=== PATIENT | male | born 1950 | race Caucasian/White ===

== ENCOUNTER 2023-06-17 12:43 | Outpatient (CLI) | payer OTHER, MEDICARE | END 2023-06-17 21:28 | disposition home or self-care (01) | LOC: SUS 12:43 | PROVIDERS: ATTEND Internal Medicine | DX: N28.1 Cyst of kidney, acquired (principal); N13.30 Unspecified hydronephrosis | CPT/HCPCS: 76770 ==

== ENCOUNTER 2023-09-20 13:15 | Inpatient (IN) | payer OTHER, MEDICARE ==
[~2023-09-20] VITALS: Ht 190.5 cm; Wt 110.7 kg
[2023-09-20 13:18] VITALS: BP_SYST 116; PULSE 74; RESP 18; TEMP 97.8; O2SAT 97
[2023-09-20] MEDS ORDERED: PANTOPRAZOLE SODIUM 40 MG/VIAL (PROTONIX) IVP ONE (14:00)
[2023-09-20 14:09] LABS: BASOPHILS # (AUTO) 0.1 K/uL (0.0-0.2); BASOPHILS % (AUTO) 1.4 % (0.0-2.0); EOSINOPHILS # (AUTO) 0.2 K/uL (0.0-0.4); EOSINOPHILS % (AUTO) 2.5 % (0.0-4.0); HEMOGLOBIN 7.1 g/dL (14.0-18.0); LYMPHOCYTES # (AUTO) 2.6 K/uL (1.0-5.5); LYMPHOCYTES % (AUTO) 29.6 % (20.5-51.5); MEAN CORPUSCULAR HEMOGLOBIN 28 pg (27-31); MEAN CORPUSCULAR HGB CONC 32 % (32-36); MEAN CORPUSCULAR VOLUME 88 fL (79.0-98.0); MONOCYTES # (AUTO) 0.8 K/uL (0.0-1.0); MONOCYTES % (AUTO) 8.8 % (1.7-9.3); NEUTROPHILS % (AUTO) 57.7 % (40.0-70.0); PLATELET COUNT (AUTO) 274 K/uL (130-430); RED BLOOD CELL COUNT(AUTO) 2.49 MIL/uL (4.2-6.2); RED CELL DISTRIBUTION WIDTH 18.7 % (9.0-15.0); WHITE BLOOD COUNT (AUTO) 8.7 K/uL (4.8-10.8)
[2023-09-20 14:19] LABS: ANION GAP 10 (5-15); CALCIUM 9.4 mg/dL (8.4-11.0); CARBON DIOXIDE 26 mmol/L (23-29); CHLORIDE 99 mmol/L (98-107); CREATININE 1.44 mg/dL (0.55-1.30); GLUCOSE 65 mg/dL (74-106); POTASSIUM 3.9 mmol/L (3.5-5.1); SODIUM SERUM 135 mmol/L (136-145); UREA NITROGEN, BLOOD 11 mg/dL (8-21)
[2023-09-20 14:24] LABS: ALANINE AMINOTRANSFERASE 46 U/L (12-78); ALBUMIN 3.6 g/dL (3.4-4.8); ASPARTATE AMINOTRANSFERASE 29 U/L (10-37); BILIRUBIN,DIRECT 0.2 mg/dL (0.0-0.3); INR 1.1 (0.80-1.20); PROTHROMBIN TIME 11.1 SECS (9.5-12.5); TOTAL BILIRUBIN 0.7 mg/dL (0.0-1.0); TOTAL PROTEIN, SERUM 7.1 g/dL (6.4-8.3)
[2023-09-20] MEDS ORDERED: ASPI-524 PO (14:39)
[2023-09-20] MEDS ORDERED: INSU100V SQ ×2 (14:39)
[2023-09-20] MEDS ORDERED: ACYC400T19 PO (14:39)
[2023-09-20] MEDS ORDERED: EXCED PO (14:39)
[2023-09-20] MEDS ORDERED: LEVO1CAP11 PO (14:39)
[2023-09-20] MEDS ORDERED: GLIP10TA21 PO (14:39)
[2023-09-20] MEDS ORDERED: LEVO50CA4 PO (14:39)
[2023-09-20] MEDS ORDERED: EMTR1TAB18 PO (14:40)
[2023-09-20] MEDS ORDERED: VALS40TA12 PO (14:40)
[2023-09-20] MEDS ORDERED: CHOL500013 PO (14:40)
[2023-09-20] MEDS ORDERED: ROSU5TAB13 PO (14:40)
[2023-09-20] MEDS ORDERED: METF1000 PO (14:40)
[2023-09-20] MEDS ORDERED: OMEG1CAP18 PO (14:40)
[2023-09-20] MEDS ORDERED: TRAM50TA2 PO (14:40)
[2023-09-20] MEDS ORDERED: SPIR1TAB3 PO (14:40)
[2023-09-20] MEDS ORDERED: METO-540 PO (14:40)
[2023-09-20] MEDS ORDERED: DULA3PEN IM (14:40)
[2023-09-20 15:04] LABS: BILIRUBIN,URINE NEGATIVE (NEGATIVE); BLOOD, URINE NEGATIVE (NEGATIVE); CLARITY/URINE CLEAR (CLEAR); COLOR,URINE YELLOW (YELLOW); GLUCOSE,URINE NEGATIVE (NEGATIVE); KETONES,URINE NEGATIVE (NEGATIVE); LEUKOCYTE ESTERASE ,URINE NEGATIVE (NEGATIVE); NITRITE, URINE NEGATIVE (NEGATIVE); PROTEIN URINE NEGATIVE (NEGATIVE); UROBILINOGEN,URINE 0.2 (0.2-1.0)
[2023-09-20] MEDS ORDERED: DEXTROSE 50% JECT 50 ML DISP.SYRIN IVP PRN (19:00)
[2023-09-20] MEDS ORDERED: traMADol HCL HCL 50 MG TABLET (ULTRAM) PO SCH (19:00)
[2023-09-20] MEDS ORDERED: PANTOPRAZOLE SODIUM 80 MG in NS 100 ML IVP ONE (19:00)
[2023-09-20 20:32] VITALS: BP_SYST 111; PULSE 77; RESP 18; TEMP 98.9
[2023-09-20] MEDS ORDERED: ALGAL OIL PO SCH (21:00)
[2023-09-20] MEDS ORDERED: LEVOMEFOLATE PO SCH (21:00)
[2023-09-20] MEDS ORDERED: B6 PO SCH (21:00)
[2023-09-20] MEDS ORDERED: B12 PO SCH (21:00)
[2023-09-20 21:30] VITALS: O2SAT 97
[2023-09-20] MEDS ORDERED: PANTOPRAZOLE SODIUM 40 MG/VIAL (PROTONIX) ONE (22:32)
[2023-09-20] MEDS: NACL 0.9% 1,000 ML IV SCH (22:43)
[2023-09-20] MEDS: ACYCLOVIR 400 MG TABLET PO SCH (23:01)
[2023-09-20] MEDS: METOPROLOL SUCCINATE 25 MG TAB.SR.24H (TOPROL XL) PO SCH (23:09)
[2023-09-21 00:14] VITALS: BP_SYST 105; PULSE 80; RESP 16; TEMP 98; O2SAT 98
[2023-09-21] MEDS: NACL 0.9% 1,000 ML IV SCH ×2 (05:00→09:29)
[2023-09-21 05:52] LABS: BASOPHILS # (AUTO) 0.1 K/uL (0.0-0.2); BASOPHILS % (AUTO) 1.5 % (0.0-2.0); EOSINOPHILS # (AUTO) 0.2 K/uL (0.0-0.4); EOSINOPHILS % (AUTO) 2.6 % (0.0-4.0); LYMPHOCYTES # (AUTO) 2.2 K/uL (1.0-5.5); LYMPHOCYTES % (AUTO) 33.8 % (20.5-51.5); MEAN CORPUSCULAR HEMOGLOBIN 28 pg (27-31); MEAN CORPUSCULAR HGB CONC 33 % (32-36); MEAN CORPUSCULAR VOLUME 87 fL (79.0-98.0); MONOCYTES # (AUTO) 0.5 K/uL (0.0-1.0); MONOCYTES % (AUTO) 8.4 % (1.7-9.3); NEUTROPHILS # (AUTO) 3.5 K/uL (1.8-7.7); NEUTROPHILS % (AUTO) 53.7 % (40.0-70.0); PLATELET COUNT (AUTO) 244 K/uL (130-430); RED BLOOD CELL COUNT(AUTO) 2.31 MIL/uL (4.2-6.2); RED CELL DISTRIBUTION WIDTH 18.5 % (9.0-15.0); RETICULOCYTE COUNT 2.8 % (0.5-1.5); WHITE BLOOD COUNT (AUTO) 6.6 K/uL (4.8-10.8)
[2023-09-21 06:04] LABS: ANION GAP 9 (5-15); CALCIUM 9.2 mg/dL (8.4-11.0); CARBON DIOXIDE 27 mmol/L (23-29); CHLORIDE 105 mmol/L (98-107); CREATININE 1.29 mg/dL (0.55-1.30); GLUCOSE 101 mg/dL (74-106); POTASSIUM 4.5 mmol/L (3.5-5.1); SODIUM SERUM 141 mmol/L (136-145); UREA NITROGEN, BLOOD 9 mg/dL (8-21)
[2023-09-21 06:19] LABS: ALANINE AMINOTRANSFERASE 40 U/L (12-78); ALBUMIN 3.2 g/dL (3.4-4.8); ASPARTATE AMINOTRANSFERASE 29 U/L (10-37); FREE T4 (FREE THYROXINE) 1.1 ng/dL (0.6-1.6); THYROID STIMULATING HORMONE 3.32 uIu/mL (0.34-4.82); TOTAL BILIRUBIN 0.7 mg/dL (0.0-1.0); TOTAL PROTEIN, SERUM 6.5 g/dL (6.4-8.3)
[2023-09-21 07:35] LABS: HEMATOCRIT 20.1 % (36-54); HEMOGLOBIN 6.5 g/dL (14.0-18.0)
[2023-09-21 08:00] VITALS: BP_SYST 131; PULSE 83; RESP 18; TEMP 97.8; O2SAT 98
[2023-09-21] MEDS: ATORVASTATIN 20 MG TABLET PO SCH (08:22)
[2023-09-21] MEDS: ACYCLOVIR 400 MG TABLET PO SCH ×2 (08:22→20:43)
[2023-09-21] MEDS: CHOLECALCIFEROL (VITAMIN D3) 5,000 UNIT TABLET PO SCH (08:22)
[2023-09-21] MEDS: PANTOPRAZOLE SODIUM 40 MG/VIAL (PROTONIX) IVP SCH ×2 (08:22→20:43)
[2023-09-21] MEDS: METOPROLOL SUCCINATE 25 MG TAB.SR.24H (TOPROL XL) PO SCH ×2 (08:22→20:43)
[2023-09-21] MEDS ORDERED: LEVOTHYROXINE SODIUM 0.05 MG TABLET PO ONE (08:30)
[2023-09-21 09:00] VITALS: O2SAT 98
[2023-09-21] MEDS ORDERED: [UNRECOGNIZED DRUG - OTHER] PO SCH (09:00)
[2023-09-21] MEDS: OMEGA-3/DHA/EPA/FISH OIL 1 GM CAPSULE PO SCH (09:27)
[2023-09-21 12:00] VITALS: BP_SYST 122; PULSE 82; RESP 17; TEMP 98.4; O2SAT 98
[2023-09-21] MEDS: INSULIN REGULAR, HUMAN 100 UNITS/ML, 3 ML VIAL (humuLIN R) SUBCUT PRN (12:04)
[2023-09-21 16:00] VITALS: BP_SYST 129; PULSE 84; RESP 18; TEMP 98; O2SAT 97
[2023-09-21] MEDS: SOD FERRIC GLUC COMPLEX/SUC 125 MG in NS 100 ML IV SCH (17:17)
[2023-09-21 20:00] VITALS: BP_SYST 111; PULSE 76; RESP 18; TEMP 97.9; O2SAT 98
[2023-09-21] MEDS: METHYLCOBALAMIN PO SCH (20:43)
[2023-09-21] MEDS: LEVOMEFOLATE PO SCH (20:43)
[2023-09-21] MEDS: [UNRECOGNIZED DRUG - OTHER] PO SCH (20:43)
[2023-09-21] MEDS: ALGAL OIL PO SCH (20:43)
[2023-09-21] MEDS ORDERED: TEMAZEPAM 7.5 MG CAPSULE PO ONE (23:00)
[2023-09-22] VITALS (7 sets, daily range): BP systolic 107–124; PULSE 69–74; RESP 16–18; TEMP 96.8–99; O2SAT 96–99
[2023-09-22] MEDS: NACL 0.9% 1,000 ML IV SCH ×3 (01:00→20:48)
[2023-09-22] MEDS: LEVOTHYROXINE SODIUM 0.05 MG TABLET PO SCH (06:11)
[2023-09-22 06:56] LABS: BASOPHILS # (AUTO) 0.1 K/uL (0.0-0.2); BASOPHILS % (AUTO) 1.1 % (0.0-2.0); EOSINOPHILS # (AUTO) 0.2 K/uL (0.0-0.4); HEMATOCRIT 24.1 % (36-54); HEMOGLOBIN 7.8 g/dL (14.0-18.0); LYMPHOCYTES # (AUTO) 2.1 K/uL (1.0-5.5); LYMPHOCYTES % (AUTO) 32.7 % (20.5-51.5); MEAN CORPUSCULAR HEMOGLOBIN 29 pg (27-31); MEAN CORPUSCULAR HGB CONC 32 % (32-36); MEAN CORPUSCULAR VOLUME 89 fL (79.0-98.0); MONOCYTES # (AUTO) 0.5 K/uL (0.0-1.0); NEUTROPHILS # (AUTO) 3.5 K/uL (1.8-7.7); NEUTROPHILS % (AUTO) 55.2 % (40.0-70.0); PLATELET COUNT (AUTO) 221 K/uL (130-430); RED BLOOD CELL COUNT(AUTO) 2.71 MIL/uL (4.2-6.2); RED CELL DISTRIBUTION WIDTH 18.2 % (9.0-15.0); WHITE BLOOD COUNT (AUTO) 6.3 K/uL (4.8-10.8)
[2023-09-22 07:14] LABS: ANION GAP 7 (5-15); CALCIUM 9.1 mg/dL (8.4-11.0); CARBON DIOXIDE 26 mmol/L (23-29); CHLORIDE 106 mmol/L (98-107); CREATININE 1.25 mg/dL (0.55-1.30); GLUCOSE 156 mg/dL (74-106); POTASSIUM 4.1 mmol/L (3.5-5.1); SODIUM SERUM 139 mmol/L (136-145); UREA NITROGEN, BLOOD 7 mg/dL (8-21)
[2023-09-22] MEDS: PANTOPRAZOLE SODIUM 40 MG/VIAL (PROTONIX) IVP SCH ×2 (08:56→20:48)
[2023-09-22] MEDS: RILPIVIRINE PO SCH (09:00)
[2023-09-22] MEDS: METHYLCOBALAMIN PO SCH ×2 (09:00→20:49)
[2023-09-22] MEDS: EMTRICITABINE PO SCH (09:00)
[2023-09-22] MEDS: LEVOMEFOLATE PO SCH ×2 (09:00→20:49)
[2023-09-22] MEDS: TENOFOVIR ALAFENAMIDE PO SCH (09:00)
[2023-09-22] MEDS: ALGAL OIL PO SCH ×2 (09:00→20:49)
[2023-09-22] MEDS: [UNRECOGNIZED DRUG - OTHER] PO SCH ×2 (09:00→20:49)
[2023-09-22] MEDS ORDERED: SIMETHICONE 40 MG/0.6 ML ML ONE (09:15)
[2023-09-22] MEDS ORDERED: MIDAZOLAM HCL 5 MG/5 ML VIAL ONE (09:16)
[2023-09-22] MEDS ORDERED: MEPERIDINE 100 MG INJ. 100 MG/ML VIAL ONE (09:16)
[2023-09-22] MEDS: OMEGA-3/DHA/EPA/FISH OIL 1 GM CAPSULE PO SCH (10:53)
[2023-09-22] MEDS: METOPROLOL SUCCINATE 25 MG TAB.SR.24H (TOPROL XL) PO SCH ×2 (10:53→20:49)
[2023-09-22] MEDS: CHOLECALCIFEROL (VITAMIN D3) 5,000 UNIT TABLET PO SCH (10:53)
[2023-09-22] MEDS: ATORVASTATIN 20 MG TABLET PO SCH (10:53)
[2023-09-22] MEDS: ACYCLOVIR 400 MG TABLET PO SCH ×2 (10:54→20:49)
[2023-09-22] MEDS: INSULIN REGULAR, HUMAN 100 UNITS/ML, 3 ML VIAL (humuLIN R) SUBCUT PRN ×3 (10:57→20:52)
[2023-09-22] MEDS: SOD FERRIC GLUC COMPLEX/SUC 125 MG in NS 100 ML IV SCH (14:21)
[2023-09-22] MEDS ORDERED: TEMAZEPAM 15 MG CAPSULE PO SCH (21:00)
[2023-09-23] VITALS: BP_SYST 123; PULSE 69; RESP 18; TEMP 97.7; O2SAT 98
[2023-09-23 06:01] LABS: BASOPHILS # (AUTO) 0.1 K/uL (0.0-0.2); BASOPHILS % (AUTO) 1.3 % (0.0-2.0); EOSINOPHILS # (AUTO) 0.2 K/uL (0.0-0.4); EOSINOPHILS % (AUTO) 2.9 % (0.0-4.0); HEMATOCRIT 26.3 % (36-54); HEMOGLOBIN 8.4 g/dL (14.0-18.0); LYMPHOCYTES # (AUTO) 2.8 K/uL (1.0-5.5); MEAN CORPUSCULAR HEMOGLOBIN 28 pg (27-31); MEAN CORPUSCULAR HGB CONC 32 % (32-36); MEAN CORPUSCULAR VOLUME 89 fL (79.0-98.0); MONOCYTES # (AUTO) 0.7 K/uL (0.0-1.0); MONOCYTES % (AUTO) 7.9 % (1.7-9.3); NEUTROPHILS # (AUTO) 4.4 K/uL (1.8-7.7); NEUTROPHILS % (AUTO) 53.9 % (40.0-70.0); PLATELET COUNT (AUTO) 231 K/uL (130-430); RED BLOOD CELL COUNT(AUTO) 2.95 MIL/uL (4.2-6.2); WHITE BLOOD COUNT (AUTO) 8.2 K/uL (4.8-10.8)
[2023-09-23] MEDS: NACL 0.9% 1,000 ML IV SCH (06:11)
[2023-09-23] MEDS: LEVOTHYROXINE SODIUM 0.05 MG TABLET PO SCH (06:11)
[2023-09-23 06:17] LABS: ANION GAP 11 (5-15); CALCIUM 9.4 mg/dL (8.4-11.0); CARBON DIOXIDE 23 mmol/L (23-29); CHLORIDE 105 mmol/L (98-107); CREATININE 1.34 mg/dL (0.55-1.30); GLUCOSE 155 mg/dL (74-106); SODIUM SERUM 139 mmol/L (136-145); UREA NITROGEN, BLOOD 9 mg/dL (8-21)
[2023-09-23] MEDS: INSULIN REGULAR, HUMAN 100 UNITS/ML, 3 ML VIAL (humuLIN R) SUBCUT PRN (06:54)
[2023-09-23 07:33] VITALS: BP_SYST 113; PULSE 67; RESP 18; TEMP 97.5; O2SAT 96
[2023-09-23 08:00] VITALS: O2SAT 99
[2023-09-23] MEDS: PANTOPRAZOLE SODIUM 40 MG/VIAL (PROTONIX) IVP SCH (08:37)
[2023-09-23] MEDS: ACYCLOVIR 400 MG TABLET PO SCH (08:38)
[2023-09-23] MEDS: CHOLECALCIFEROL (VITAMIN D3) 5,000 UNIT TABLET PO SCH (08:38)
[2023-09-23] MEDS: OMEGA-3/DHA/EPA/FISH OIL 1 GM CAPSULE PO SCH (08:38)
[2023-09-23] MEDS: ATORVASTATIN 20 MG TABLET PO SCH (08:38)
[2023-09-23] MEDS: METOPROLOL SUCCINATE 25 MG TAB.SR.24H (TOPROL XL) PO SCH (08:39)
[2023-09-23] MEDS: RILPIVIRINE PO SCH (08:39)
[2023-09-23] MEDS: LEVOMEFOLATE PO SCH (08:39)
[2023-09-23] MEDS: TENOFOVIR ALAFENAMIDE PO SCH (08:39)
[2023-09-23] MEDS: ALGAL OIL PO SCH (08:39)
[2023-09-23] MEDS: [UNRECOGNIZED DRUG - OTHER] PO SCH (08:39)
[2023-09-23] MEDS: EMTRICITABINE PO SCH (08:39)
[2023-09-23] MEDS: METHYLCOBALAMIN PO SCH (08:39)
[2023-09-23] MEDS ORDERED: PRO40 PO (11:50)
[2023-09-23 13:48] VITALS: BP_SYST 113; PULSE 67; RESP 18; TEMP 97.8; O2SAT 99
== END 2023-09-23 14:30 | disposition home health service (06) | DRG 811 ==
LOC: SED 13:15 → STU 15:11 → SMU 19:30
PROVIDERS: ADMIT Internal Medicine; ATTEND Internal Medicine
PROC: 30233N1 Transfusion of Nonautologous Red Blood Cells into Peripheral Vein, Percutaneous Approach (ICD-10-PCS; 2023-09-21)
PROC: 0DB78ZX Excision of Stomach, Pylorus, Via Natural or Artificial Opening Endoscopic, Diagnostic (ICD-10-PCS; principal; 2023-09-22 10:00)
DX: D62 Acute posthemorrhagic anemia (principal); K25.4 Chronic or unspecified gastric ulcer with hemorrhage; E44.1 Mild protein-calorie malnutrition; I10 Essential (primary) hypertension; E11.649 Type 2 diabetes mellitus with hypoglycemia without coma; E78.5 Hyperlipidemia, unspecified; K21.9 Gastro-esophageal reflux disease without esophagitis; E66.9 Obesity, unspecified; E11.21 Type 2 diabetes mellitus with diabetic nephropathy; K29.80 Duodenitis without bleeding; K29.70 Gastritis, unspecified, without bleeding; K44.9 Diaphragmatic hernia without obstruction or gangrene; Z87.891 Personal history of nicotine dependence; Z79.899 Other long term (current) drug therapy; Z68.30 Body mass index [BMI] 30.0-30.9, adult
CPT/HCPCS: 36415; 43239; 71045; 80048; 80053; 80076; 81001; 81003; 82962; 83735; 84439; 84443; 84484; 85025; 85044; 85610-TC; 85730-TC; 86886; 86900; 86901; 86920; 87081; 88305; 88312; 88313; 93005; 96374; 99285; C9113; G0378; J1815; J2175; J2250; J2916; P9021

== ENCOUNTER 2024-06-17 14:27 | Inpatient (IN) | payer OTHER, MEDICARE ==
[~2024-06-17] VITALS: Ht 190.5 cm; Wt 109.8 kg
[~2024-06-17 14:27] MED LIST: ACYC400T19 PO; CHOL500013 PO; DULA3PEN IM; EMTR1TAB18 PO; INSU100V SQ; LEVO1CAP11 PO; LEVO50CA4 PO; METF1000 PO; METO-304 PO; OMEG1CAP18 PO; PRO40 PO; ROSU5TAB43 PO; SPIR1TAB3 PO; TRAM50TA2 PO; VALS40TA12 PO
[2024-06-17 14:36] VITALS: BP_SYST 154; PULSE 69; RESP 22; TEMP 97.7; O2SAT 98
[2024-06-17 15:27] LABS: BASOPHILS # (AUTO) 0.1 K/uL (0.0-0.2); EOSINOPHILS # (AUTO) 0.2 K/uL (0.0-0.4); EOSINOPHILS % (AUTO) 2.3 % (0.0-4.0); HEMOGLOBIN 11.8 g/dL (14.0-18.0); LYMPHOCYTES # (AUTO) 2.2 K/uL (1.0-5.5); LYMPHOCYTES % (AUTO) 31.5 % (20.5-51.5); MEAN CORPUSCULAR HEMOGLOBIN 29 pg (27-31); MEAN CORPUSCULAR HGB CONC 33 % (32-36); MEAN CORPUSCULAR VOLUME 88 fL (79.0-98.0); MONOCYTES # (AUTO) 0.5 K/uL (0.0-1.0); MONOCYTES % (AUTO) 7.7 % (1.7-9.3); NEUTROPHILS # (AUTO) 3.9 K/uL (1.8-7.7); NEUTROPHILS % (AUTO) 57.5 % (40.0-70.0); PLATELET COUNT (AUTO) 139 K/uL (130-430); RED CELL DISTRIBUTION WIDTH 17.3 % (9.0-15.0); WHITE BLOOD COUNT (AUTO) 6.8 K/uL (4.8-10.8)
[2024-06-17 15:41] LABS: ALANINE AMINOTRANSFERASE 66 U/L (12-78); ALBUMIN 3.5 g/dL (3.4-4.8); ANION GAP 9 (5-15); ASPARTATE AMINOTRANSFERASE 47 U/L (10-37); BILIRUBIN,DIRECT 0.3 mg/dL (0.0-0.3); CALCIUM 8.8 mg/dL (8.4-11.0); CARBON DIOXIDE 27 mmol/L (23-29); CHLORIDE 103 mmol/L (98-107); CREATININE 1.09 mg/dL (0.55-1.30); GLUCOSE 178 mg/dL (74-106); SODIUM SERUM 139 mmol/L (136-145); TOTAL BILIRUBIN 1.2 mg/dL (0.0-1.0); UREA NITROGEN, BLOOD 13 mg/dL (8-21)
[2024-06-17 15:55] LABS: INR 1.2 (0.80-1.20)
[2024-06-17] MEDS ORDERED: METF-381 PO (16:30)
[2024-06-17] MEDS ORDERED: PANT40TA45 PO (16:30)
[2024-06-17] MEDS ORDERED: LEVO50TA8 PO (16:30)
[2024-06-17] MEDS ORDERED: FERR-31 PO (16:30)
[2024-06-17] MEDS ORDERED: VIBE75TA PO (16:30)
[2024-06-17] MEDS ORDERED: SPIR25TA6 PO (16:30)
[2024-06-17] MEDS ORDERED: TRULICITY (16:38)
[2024-06-17] MEDS ORDERED: INSU100V (16:38)
[2024-06-17] MEDS ORDERED: EMTR1TAB18 PO (16:38)
[2024-06-17] MEDS ORDERED: LEVO1CAP11 (16:38)
[2024-06-17] MEDS ORDERED: GLIP10TA11 PO (16:38)
[2024-06-17] MEDS ORDERED: traMADol HCL HCL 50 MG TABLET (ULTRAM) PO SCH (20:15)
[2024-06-17] MEDS ORDERED: DEXTROSE 50% JECT 50 ML DISP.SYRIN IVP PRN (20:15)
[2024-06-17 20:34] VITALS: O2SAT 97
[2024-06-17] MEDS ORDERED: METOPROLOL SUCCINATE 25 MG TAB.SR.24H (TOPROL XL) PO SCH (21:00)
[2024-06-17] MEDS ORDERED: ACYCLOVIR 400 MG TABLET PO SCH (21:00)
[2024-06-17 21:24] VITALS: BP_SYST 128; PULSE 72; RESP 18
[2024-06-17] MEDS: metFORMIN HCL 500 MG TABLET PO SCH (21:33)
[2024-06-17] MEDS: METOPROLOL SUCCINATE 25 MG TAB.SR.24H (TOPROL XL) PO SCH (21:34)
[2024-06-17] MEDS: ACYCLOVIR 400 MG TABLET PO SCH (21:34)
[2024-06-17] MEDS: PANTOPRAZOLE SODIUM 40 MG in NS 50 ML IV SCH (21:35)
[2024-06-17] MEDS: PANTOPRAZOLE SODIUM 40 MG/VIAL (PROTONIX) ONE ×2 (21:41→22:51)
[2024-06-17] MEDS: PANTOPRAZOLE SODIUM 80 MG in NS 100 ML IVP ONE (22:51)
[2024-06-17] MEDS: INSULIN REGULAR, HUMAN 100 UNITS/ML, 3 ML VIAL (humuLIN R) SUBCUT PRN (22:54)
[2024-06-18] VITALS: BP_SYST 150; PULSE 59; RESP 18; TEMP 97.3; O2SAT 96
[2024-06-18] MEDS: PANTOPRAZOLE SODIUM 40 MG/VIAL (PROTONIX) ONE (06:31)
[2024-06-18 07:14] LABS: BASOPHILS # (AUTO) 0.1 K/uL (0.0-0.2); BASOPHILS % (AUTO) 1.2 % (0.0-2.0); EOSINOPHILS # (AUTO) 0.2 K/uL (0.0-0.4); EOSINOPHILS % (AUTO) 3.7 % (0.0-4.0); HEMATOCRIT 32.4 % (36-54); LYMPHOCYTES # (AUTO) 2.1 K/uL (1.0-5.5); LYMPHOCYTES % (AUTO) 32.1 % (20.5-51.5); MEAN CORPUSCULAR HEMOGLOBIN 29 pg (27-31); MEAN CORPUSCULAR HGB CONC 34 % (32-36); MEAN CORPUSCULAR VOLUME 86 fL (79.0-98.0); MONOCYTES # (AUTO) 0.6 K/uL (0.0-1.0); MONOCYTES % (AUTO) 9.1 % (1.7-9.3); NEUTROPHILS # (AUTO) 3.4 K/uL (1.8-7.7); NEUTROPHILS % (AUTO) 53.9 % (40.0-70.0); PLATELET COUNT (AUTO) 134 K/uL (130-430); RED BLOOD CELL COUNT(AUTO) 3.76 MIL/uL (4.2-6.2); RED CELL DISTRIBUTION WIDTH 17.2 % (9.0-15.0); RETICULOCYTE COUNT 2.3 % (0.5-1.5); WHITE BLOOD COUNT (AUTO) 6.4 K/uL (4.8-10.8)
[2024-06-18 07:41] LABS: ALANINE AMINOTRANSFERASE 62 U/L (12-78); ALBUMIN 3.4 g/dL (3.4-4.8); ANION GAP 8 (5-15); ASPARTATE AMINOTRANSFERASE 44 U/L (10-37); CALCIUM 8.9 mg/dL (8.4-11.0); CARBON DIOXIDE 28 mmol/L (23-29); CHLORIDE 104 mmol/L (98-107); CREATININE 1.09 mg/dL (0.55-1.30); GLUCOSE 164 mg/dL (74-106); POTASSIUM 3.6 mmol/L (3.5-5.1); SODIUM SERUM 140 mmol/L (136-145); TOTAL BILIRUBIN 1.1 mg/dL (0.0-1.0); TOTAL PROTEIN, SERUM 6.7 g/dL (6.4-8.3); UREA NITROGEN, BLOOD 11 mg/dL (8-21)
[2024-06-18 08:02] LABS: INR 1.2 (0.80-1.20); PROTHROMBIN TIME 12.1 SECS (9.5-12.5)
[2024-06-18 08:15] VITALS: BP_SYST 161; PULSE 71; RESP 16; TEMP 98.2; O2SAT 98
[2024-06-18 09:00] VITALS: O2SAT 98
[2024-06-18] MEDS ORDERED: ROSUVASTATIN CALCIUM 5 MG/TAB (CRESTOR) PO SCH (09:00)
[2024-06-18] MEDS: LEVOTHYROXINE SODIUM 0.05 MG TABLET PO ONE (09:34)
[2024-06-18] MEDS: ATORVASTATIN 20 MG TABLET PO SCH (09:34)
[2024-06-18] MEDS: PANTOPRAZOLE SODIUM 40 MG TAB PO SCH (09:34)
[2024-06-18] MEDS: FERROUS SULFATE 325 MG TABLET.DR PO SCH (09:36)
[2024-06-18] MEDS: SPIRONOLACTONE 25 MG TABLET (ALDACTONE) PO SCH (09:36)
[2024-06-18] MEDS: CHOLECALCIFEROL (VITAMIN D3) 5,000 UNIT TABLET PO SCH (09:36)
[2024-06-18] MEDS: INSULIN Lispro 100 UNITS/ML, 3 ML VIAL (humaLOG) SQ SCH (11:13)
[2024-06-18 12:28] VITALS: BP_SYST 131; PULSE 69; RESP 18; TEMP 99.2; O2SAT 96
[2024-06-18 16:15] VITALS: BP_SYST 118; PULSE 77; RESP 18; TEMP 97.8; O2SAT 97
[2024-06-18 16:38] VITALS: BP_SYST 118; PULSE 77; RESP 18; TEMP 97.8; O2SAT 97
[2024-06-18] MEDS ORDERED: INSULIN Lispro 100 UNITS/ML, 3 ML VIAL (humaLOG) SQ SCH (18:00)
[2024-06-19] MEDS ORDERED: LEVOTHYROXINE SODIUM 0.05 MG TABLET PO SCH (07:00)
== END 2024-06-18 17:00 | disposition home or self-care (01) | DRG 378 ==
LOC: SED 14:27 → SMU 17:33
PROVIDERS: ADMIT Internal Medicine; ATTEND Internal Medicine
DX: K31.811 Angiodysplasia of stomach and duodenum with bleeding (principal); D62 Acute posthemorrhagic anemia; K74.60 Unspecified cirrhosis of liver; I10 Essential (primary) hypertension; E78.5 Hyperlipidemia, unspecified; E66.9 Obesity, unspecified; E11.9 Type 2 diabetes mellitus without complications; Z68.30 Body mass index [BMI] 30.0-30.9, adult; Z79.4 Long term (current) use of insulin; Z79.899 Other long term (current) drug therapy
CPT/HCPCS: 36415; 71045; 76700; 80048; 80053; 80076; 82948; 85025; 85044; 85610; 85730; 93005; 99285; J2470